=== PATIENT | female | born 1985 | race Caucasian/White ===

== ENCOUNTER → 2020-11-13 | Outpatient (CLI) | payer MEDICAID ==
[~2020-11-13] MED LIST: DCS100C PO; FRS325T PO; IBP600T1 PO; OXYC-12 PO; PREN1TAB14 PO; PREN1TAB25 PO
--- NOTE | 2020-11-13 11:43 | Diagnostic Imaging Report ---
INDICATION: assessment during normal . TECHNIQUE: Multiple real-time grayscale images were obtained over the gravid uterus. COMPARISON: None FINDINGS: A single live intrauterine is currently in cephalic presentation. Placenta is anterior in left aspect without previa. Cervical length is 5.2 cm. Normal amount of amniotic fluid, index of 17.8 cm. Visualized anatomical structures including the kidneys, bladder, stomach, intracranial structures, four-chamber heart, three-vessel cord and cord insertion site as well as spine are unremarkable. Nonvisualized maternal ovaries. Biometrical measurements are as follows: Biparietal 4.84 cm, age 20 weeks 5 days. Head circumference 17.77 cm, age 20 weeks 2 days. Abdominal circumference 14.92 cm, age 20 weeks 2 days. Femur length 3.27 cm, age 20 weeks 2 days. Sonographic estimate age: 20 weeks 3 days. Sonographic estimated date of delivery: 03/30/2021. Estimated Weight: 339 gm (+/- 50 gm). LMP percentile: 41%. heart rate: 139 beats per minute. number: 1 of 1. IMPRESSION: 1. Single live intrauterine currently in a cephalic presentation. Sonographic estimated age 20 weeks 3 days for an estimated date of delivery March 30, 2021. No abnormalities demonstrated at this time. Dictated by: Dictated on workstation # [id number]
== END ==
LOC: RAD 09:33
PROVIDERS: ATTEND Obstetrics & Gynecology
DX: Z34.02 Encounter for supervision of normal first pregnancy, second trimester (principal); Z3A.20 20 weeks gestation of pregnancy
CPT/HCPCS: 76805

== ENCOUNTER 2021-03-21 05:41 | Outpatient (CLI) | payer MEDICAID ==
[~2021-03-21] VITALS: Ht 160 cm; Wt 69.3 kg
[2021-03-21] MEDS ORDERED: PREN-8 PO (12:10)
[2021-03-21] MEDS ORDERED: FERR-74 PO (12:10)
== END 2021-03-21 12:55 | disposition home or self-care (01) ==
LOC: PREOP 05:41
PROVIDERS: ATTEND Obstetrics & Gynecology
DX: Z01.818 Encounter for other preprocedural examination (principal)

== ENCOUNTER 2021-03-29 00:32 | Inpatient (IN) | payer MEDICAID ==
[~2021-03-29] VITALS: Ht 157.5 cm; Wt 68.4 kg
[2021-03-29] VITALS (9 sets, daily range): BP systolic 92–114; BP diastolic 57–77
[~2021-03-29 00:32] MED LIST changes: +FERR-74 PO; +PREN-8 PO
[2021-03-29] MEDS ORDERED: OXYTOCIN PRE-MIX DRIP 1,000 ML IV ONE (11:39)
[2021-03-29] MEDS ORDERED: fentaNYL INJ 100 MCG/2 ML AMP ONE (11:39)
[2021-03-29] MEDS ORDERED: ROPIVACAINE 5MG/ML 30ML VIAL ONE (11:39)
[2021-03-29] MEDS ORDERED: ceFAZolin INJECTION 1,000 MG in WATER (STERILE) FOR INJECTION 10 ML IV ONE (11:45)
[2021-03-29] MEDS ORDERED: CITRIC ACID/SOB CIT (BICITRA) 30 ML UDC ONE (11:46)
[2021-03-29] MEDS ORDERED: FAMOTIDINE 20MG/2ML IV (PEPCID) ONE (11:46)
[2021-03-29] MEDS ORDERED: METOCLOPRAMIDE INJ 10 MG/2 ML (REGLAN) ONE (11:46)
[2021-03-29 11:49] LABS: BASOPHILS % (AUTO) 0 % (0-10); EOSINOPHILS # (AUTO) 0.1 10^3/uL (0.0-0.3); EOSINOPHILS % (AUTO) 1 % (0-10); HEMATOCRIT 37 % (35-52); HEMOGLOBIN 12.7 g/dL (11.5-16.0); LYMPHOCYTES # (AUTO) 1.7 10^3/uL (1.0-4.0); LYMPHOCYTES % (AUTO) 18 % (12-44); MEAN CORPUSCULAR HEMOGLOBIN 33 pg (25-34); MEAN CORPUSCULAR HGB CONC 35 g/dL (32-36); MEAN CORPUSCULAR VOLUME 95 fL (80-99); MEAN PLATELET VOLUME 11.8 fL (9.0-12.2); MONOCYTES # (AUTO) 0.4 10^3/uL (0.0-1.0); MONOCYTES % (AUTO) 5 % (0-12); NEUTROPHILS # (AUTO) 7.2 10^3/uL (1.8-7.8); NEUTROPHILS % (AUTO) 76 % (42-75); PLATELET COUNT 213 10^3/uL (130-400); WHITE BLOOD COUNT 9.5 10^3/uL (4.3-11.0)
[2021-03-29] MEDS ORDERED: ceFAZolin INJECTION 1,000 MG ONE (11:57)
[2021-03-29] MEDS ORDERED: WATER (STERILE) FOR INJECTION 10 ML ONE (11:59)
[2021-03-29] MEDS ORDERED: CITRIC ACID/SOB CIT (BICITRA) 30 ML UDC PO ONE (12:00)
[2021-03-29] MEDS ORDERED: LACTATED RINGERS 1,000 ML IV PRN (12:00)
[2021-03-29] MEDS ORDERED: METOCLOPRAMIDE INJ 10 MG/2 ML (REGLAN) IV ONE (12:00)
[2021-03-29] MEDS ORDERED: CATHETER FLUSH 10 ML SYR IV PRN (12:00)
[2021-03-29] MEDS ORDERED: FAMOTIDINE 20MG/2ML IV (PEPCID) IV ONE (12:00)
--- NOTE | 2021-03-29 12:03 | History & Physical-OB ---
OB - Chief Complaint & HPI Date/Time Date of Admission: Date of Admission: Mar 29, 2021 at 10:53 Date seen by a Provider: Mar 29, 2021 Time Seen by a Provider: 12:00 Chief Complaint/History OB-Reason for Admission/Chief: Section Hx : 4 Hx Para: 3 Expected Date of Delivery: Mar 31, 2021 Gestational Age in Weeks: 39 Gestational Age in Days: 5 Indication for : desires repeat Admission Nurse Assessment Rev: Yes Allergies and Home Medications Allergies Coded Allergies: No Known Drug Allergies (Unverified , 09/08/12) Home Medications Ferrous Sulfate 325 Mg Tablet, 325 MG PO TID, (Reported) Vit W-Ca,Fe,FA(<1 mg) 1 Each Tablet, 1 EACH PO DAILY, (Reported) Patient Home Medication List Home Medication List Reviewed: Yes OB - History Hx of Present Care: Yes Ultrasounds: Normal mid trimester US Obstetrical Complications: None Medical Complications: None Obstetrical History Hx Termination: No Hx Multiple Gestation: No Hx Stillbirth: No Hx Complication: Yes (VAGINAL BLEEDING WITH FIRST ) Hx Induced Hypertens: No Hx Maternal Gestational Diabet: No Delivery History Hx Section: Yes Hx Blood Disorders: No Patient Past Medical History n/a Immunizations Date of Influenza Vaccine: Sep 01, 2012 OB - Admission Exam Physical Exam HEENT: NCAT Heart: Rhythm Normal Lungs: Clear Abdomen: Gravid Extremities: Normal Reflexes: Normal Heart Rate: 130's Accelerations: Accelerations Present Decelerations: No Decelerations Short Term Variability: Present Subassembly Supervisor Variability: Average (6-25) Contractions on Admission: >10 Minutes Apart Intensity: Mild Labs Laboratory Tests Test 03/29/21 11:18 Range/Units White Blood Count 9.5 4.3-11.0 10^3/uL Red Blood Count 3.85 3.80-5.11 10^6/uL Hemoglobin 12.7 11.5-16.0 g/dL Hematocrit 37 35-52 % Mean Corpuscular Volume 95 80-99 fL Mean Corpuscular Hemoglobin 33 25-34 pg Mean Corpuscular Hemoglobin Concent 35 32-36 g/dL Red Cell Distribution Width 13.6 10.0-14.5 % Platelet Count 213 130-400 10^3/uL Mean Platelet Volume 11.8 9.0-12.2 fL Immature Granulocyte % (Auto) 1 % Neutrophils (%) (Auto) 76 H 42-75 % Lymphocytes (%) (Auto) 18 12-44 % Monocytes (%) (Auto) 5 0-12 % Eosinophils (%) (Auto) 1 0-10 % Basophils (%) (Auto) 0 0-10 % Neutrophils # (Auto) 7.2 1.8-7.8 10^3/uL Lymphocytes # (Auto) 1.7 1.0-4.0 10^3/uL Monocytes # (Auto) 0.4 0.0-1.0 10^3/uL Eosinophils # (Auto) 0.1 0.0-0.3 10^3/uL Basophils # (Auto) 0.0 0.0-0.1 10^3/uL Immature Granulocyte # (Auto) 0.1 0.0-0.1 10^3/uL OB - Assessment/Plan/Diagnosis Assessment Assessment: section Admission Dx 35 yo @ 39 weeks Previous Admission Status: Inpatient Order (span 2 midnights) Reason for Inpatient Admission: Repeat Plan Plan: Section JIMMIE DAO DO Mar 29, 2021 12:03
[2021-03-29] MEDS ORDERED: TETANUS,DIPTH,PERTUSS P/F (BOOSTRIX) 0.5 ML VIAL IM SCH (12:15)
[2021-03-29] MEDS ORDERED: HYDROcodone/APAP 5 MG/325 MG (LORTAB) TAB PO PRN (12:15)
[2021-03-29] MEDS ORDERED: HYDROmorphone 2 MG/ML VIAL (DILAUDID) IV NR (12:15)
[2021-03-29] MEDS ORDERED: MEASLES,MUMPS,RUBELLA 1 EA INJ SC SCH (12:15)
[2021-03-29] MEDS ORDERED: ONDANSETRON 4 MG/2 ML (SDV) Z0FRAN IVP PRN ×2 (12:15)
[2021-03-29] MEDS ORDERED: KETOROLAC 30 MG/ML VIAL ONE (12:46)
[2021-03-29] MEDS ORDERED: PNV11TAB5 PO (12:50)
[2021-03-29] MEDS ORDERED: PHENYLEPHRINE 100 MCG/ML 10 ML (ANESTHESIA) SYR ONE (12:56)
[2021-03-29] MEDS: KETOROLAC 30 MG/ML VIAL IV SCH ×2 (13:00→20:45)
[2021-03-29] MEDS: OXYTOCIN PRE-MIX DRIP 500 ML IV SCH ×2 (13:40→17:54)
[2021-03-29] MEDS: CATHETER FLUSH 10 ML SYR IV SCH (15:10)
[2021-03-29] MEDS: DOCUSATE SODIUM 100 MG (COLACE) CAP PO SCH (20:45)
--- NOTE | 2021-03-29 21:49 | OPERATIVE REPORT ---
DATE OF SERVICE: PREOPERATIVE DIAGNOSES: 1. A 35-year-old G4, P3 at 39 weeks gestation. 2. Previous section x3. POSTOPERATIVE DIAGNOSES: 1. A 35-year-old G4, P3 at 39 weeks gestation. 2. Previous section x3. PROCEDURE PERFORMED: Repeat low transverse section. SURGEON: Calin Dao DO. ANESTHESIA: Spinal. ESTIMATED BLOOD LOSS: 600 mL. URINE OUTPUT: 50 mL clear at the end of the procedure. FLUIDS: A 1200 mL lactated Ringer's solution. FINDINGS: A live female weighing 6 pounds and 10 ounces, Apgars of 8 and 9. Grossly normal appearing uterus, bilateral fallopian tubes and ovaries. SPECIMEN SENT: None. INDICATIONS FOR PROCEDURE: This is a 35-year-old female patient who had sought care in my office, it was uncomplicated with the exception of planned repeat at 39 weeks. Risks of procedure have been discussed with the patient throughout her care including risk of bleeding, infection, damage to surrounding structures including, but not limited to bowel, bladder, or kidneys, possible need for operation, postoperative complications that may occur, risk from anesthesia and even . After everything had been discussed with the patient in the preoperative area, once again her consent was obtained in the preoperative area and the patient was taken to the operating room. OPERATIVE REPORT IN DETAIL: Once in the operating room, spinal analgesia was found to be adequate, she was placed in the supine position with leftward tilt and prepped and draped in normal sterile fashion. Timeout was performed and anesthesia was tested. I then proceeded to making a Pfannenstiel skin incision to the previously existing scar using knife and carried down to the underlying fascia using Bovie cautery. The fascial incision extended laterally using Bovie cautery. Superior aspect of the fascial incision was then grasped with Judy clamps, tented up and dissected off the underlying rectus muscles. The inferior aspect of fascial incision was then grasped with Judy clamps, tented up and dissected off the underlying rectus muscles. Rectus muscles were then dissected down the midline, which exposed the peritoneum, which I entered bluntly and extended using blunt traction. Vidal ring retractor was placed in the peritoneal incision, which offers excellent lateral sidewall retraction. I then identified the lower uterine segment, which was found to be thinned out. I made a low transverse incision to the vesicouterine peritoneum and bluntly dissected off the lower uterine segment, creating a bladder flap. I then proceeded with my myotomy until membranes were visualized, at which point, I extended the uterine incision laterally and superiorly using bandage scissors. Amniotomy was then performed. Clear fluid was noted. was found in vertex presentation. With gentle fundal pressure, the 's head was delivered through the incision, where nuchal cord was reduced x1. Anterior and posterior shoulders were delivered. The infant was then brought to the operative field with cord doubly clamped and cut and was handed off to waiting nurses in attendance. Cord blood was then collected, 3-vessel cord with intact placenta was delivered spontaneously thereafter. IV Pitocin was initiated to facilitate uterine contraction. Uterine fundus became firmer with bimanual massage. The uterus was then exteriorized and cleared of all endometrial clots and debris. I then proceeded with closing the uterine incision using 0 Vicryl suture in a running locked fashion. Second layer of imbricating 0 Monocryl was placed. Excellent hemostasis was noted after doing this. I then placed the uterus back in the pelvis and copiously irrigated the pelvis using normal saline. Once again, there was no active bleeding noted from any of my dissection planes. I placed Interceed antiadhesive over my low transverse incision. I removed the Vidal ring retractor and then proceeded with closing the peritoneum using 3-0 Vicryl suture in a running fashion. The rectus muscle was reapproximated using 3-0 Vicryl suture in an interrupted fashion. The fascia was reapproximated using 0 Vicryl suture in running fashion. Subcutaneous tissue was reapproximated using 4-0 and the subcutaneous tissue is thin; therefore, the skin was reapproximated using 4-0 Monocryl in a running subcuticular. Dermabond was applied to the incision and sterile dressing with adhesive white tape. The patient tolerated the procedure well and was taken to the recovery area in stable condition. Lap and sponge count was correct at the end of the procedure. Instrument counts were correct as well. Two grams of Ancef were given preoperatively for infection prophylaxis. Job ID: [id number] DocumentID: [id number] Dictated Date: 03/29/2021 12:59:34 Program Proposals Coordinator Date: 03/29/2021 21:47:53 Dictated By: CALIN DAO DO
[2021-03-30 00:05] VITALS: BP 94/51
[2021-03-30 04:23] VITALS: BP 85/56
[2021-03-30] MEDS: KETOROLAC 30 MG/ML VIAL IV SCH ×2 (04:23→23:22)
[2021-03-30] MEDS: CATHETER FLUSH 10 ML SYR IV SCH (04:23)
[2021-03-30 06:06] LABS: BASOPHILS % (AUTO) 0 % (0-10); EOSINOPHILS # (AUTO) 0.1 10^3/uL (0.0-0.3); EOSINOPHILS % (AUTO) 1 % (0-10); HEMATOCRIT 30 % (35-52); HEMOGLOBIN 10.1 g/dL (11.5-16.0); LYMPHOCYTES # (AUTO) 1.1 10^3/uL (1.0-4.0); LYMPHOCYTES % (AUTO) 8 % (12-44); MEAN CORPUSCULAR HEMOGLOBIN 33 pg (25-34); MEAN CORPUSCULAR HGB CONC 34 g/dL (32-36); MEAN CORPUSCULAR VOLUME 97 fL (80-99); MEAN PLATELET VOLUME 11.7 fL (9.0-12.2); MONOCYTES # (AUTO) 0.4 10^3/uL (0.0-1.0); MONOCYTES % (AUTO) 3 % (0-12); NEUTROPHILS # (AUTO) 12.1 10^3/uL (1.8-7.8); NEUTROPHILS % (AUTO) 88 % (42-75); PLATELET COUNT 161 10^3/uL (130-400); WHITE BLOOD COUNT 13.8 10^3/uL (4.3-11.0)
--- NOTE | 2021-03-30 08:28 | Postpartum Progress Note ---
Note Note Day # 1 Subjective: Patient is without complaints. Ambulating, voiding. Tolerating a regular diet without nausea or vomiting. Normal lochia. Pain is well controlled with oral pain medications. Objective: Physical Exam: General - Alert and oriented, no apparent distress Abdomen - Soft, appropriately tender to palpation, non-distended, fundus firm at umbilicus Extremities - no edema, negative Anne Marie's bilaterally Incision- c/d/i Assessment: POD 1 RLTCS Acute blood loss anemia Plan: Routine care. Encourage breast feeding. Encourage ambulation. Ferrous sulfate supplementation. Plan for discharge tomorrow Vitals - Labs Vital Signs - I&O Vital Signs Date Time Temp Pulse Resp B/P (MAP) Pulse Ox O2 Delivery O2 Flow Rate FiO2 03/30/21 04:23 36.3 56 18 85/56 (66) 97 Room Air 03/30/21 00:05 36.4 72 18 94/51 (65) 98 Room Air 03/29/21 20:45 36.8 61 18 111/61 (78) 98 Room Air 03/29/21 16:00 36.8 52 18 105/59 (74) 100 Room Air 03/29/21 14:12 Room Air 03/29/21 14:12 36.1 16 102/77 (85) 98 Room Air 03/29/21 13:58 36.3 16 98/57 (71) 98 Room Air 03/29/21 13:58 Room Air 03/29/21 13:43 36.0 16 108/69 (82) 98 Room Air 03/29/21 13:43 Room Air 03/29/21 13:27 35.9 16 101/65 (77) 97 Room Air 03/29/21 13:27 Room Air 03/29/21 13:12 36.0 16 92/58 (69) 96 Room Air 03/29/21 13:12 Room Air 03/29/21 11:54 66 16 107/74 (85) 99 Room Air 03/29/21 11:11 36.4 76 18 97 Room Air I & O 03/30/21 07:00 Intake Total 3010 ml Output Total 125 ml Balance 2885 ml Labs Laboratory Tests 03/29/21 11:18: White Blood Count 9.5, Red Blood Count 3.85, Hemoglobin 12.7, Hematocrit 37, Mean Corpuscular Volume 95, Mean Corpuscular Hemoglobin 33, Mean Corpuscular Hemoglobin Concent 35, Red Cell Distribution Width 13.6, Platelet Count 213, Mean Platelet Volume 11.8, Immature Granulocyte % (Auto) 1, Neutrophils (%) (Auto) 76H, Lymphocytes (%) (Auto) 18, Monocytes (%) (Auto) 5, Eosinophils (%) (Auto) 1, Basophils (%) (Auto) 0, Neutrophils # (Auto) 7.2, Lymphocytes # (Auto) 1.7, Monocytes # (Auto) 0.4, Eosinophils # (Auto) 0.1, Basophils # (Auto) 0.0, Immature Granulocyte # (Auto) 0.1 03/30/21 05:45: White Blood Count 13.8H, Red Blood Count 3.08L, Hemoglobin 10.1#L, Hematocrit 3 0L, Mean Corpuscular Volume 97, Mean Corpuscular Hemoglobin 33, Mean Corpuscular Hemoglobin Concent 34, Red Cell Distribution Width 13.7, Platelet Count 161, Mean Platelet Volume 11.7, Immature Granulocyte % (Auto) 0, Neutrophils (%) ( Auto) 88H, Lymphocytes (%) (Auto) 8L, Monocytes (%) (Auto) 3, Eosinophils (%) (Auto) 1, Basophils (%) (Auto) 0, Neutrophils # (Auto) 12.1H, Lymphocytes # (Auto) 1.1, Monocytes # (Auto) 0.4, Eosinophils # (Auto) 0.1, Basophils # (Auto) 0.0, Immature Granulocyte # (Auto) 0.1 JIMMIE DAO DO Mar 30, 2021 08:28
--- NOTE | 2021-03-30 09:23 | Anesthesia-Regional Post-Op ---
Regional Patient Condition Mental Status: Alert, Oriented x3 Circulation: Same as Pre-Op Headache: Absent Sensation: Full Recovery Motor Block: Absent Post Op Complications Complications None Follow Up Care/Instructions Patient Instructions None needed. Anesthesia/Patient Condition Patient is doing well, no complaints, stable vital signs, no apparent adverse anesthesia problems. No complications reported per nursing. CARLOS SCHMIDT CRNA Mar 30, 2021 09:23
[2021-03-30 10:01] VITALS: BP 112/87
[2021-03-30] MEDS: DOCUSATE SODIUM 100 MG (COLACE) CAP PO SCH ×2 (10:19→21:37)
[2021-03-30] MEDS: IBUPROFEN 600 MG (MOTRIN) TAB PO SCH ×3 (12:15→23:25)
[2021-03-30 16:23] VITALS: BP 110/64
[2021-03-30] MEDS ORDERED: SIMETHICONE 80 MG (MYLICON) CHEW ONE (21:42)
[2021-03-30] MEDS ORDERED: SIMETHICONE 80 MG (MYLICON) CHEW PO PRN (21:45)
[2021-03-30 23:25] VITALS: BP 102/54
[2021-03-31 06:42] VITALS: BP 105/68
[2021-03-31] MEDS: IBUPROFEN 600 MG (MOTRIN) TAB PO SCH (06:42)
[2021-03-31] MEDS: DOCUSATE SODIUM 100 MG (COLACE) CAP PO SCH (08:24)
[2021-03-31 08:28] VITALS: BP 123/79
--- NOTE | 2021-03-31 08:50 | Postpartum Progress Note ---
Note Note Day # 2 Subjective: Patient is without complaints. Ambulating, voiding. Tolerating a regular diet without nausea or vomiting. Normal lochia. Pain is well controlled with oral pain medications. Objective: Physical Exam: General - Alert and oriented, no apparent distress Abdomen - Soft, appropriately tender to palpation, non-distended, fundus firm at umbilicus Extremities - no edema, negative Anne Marie's bilaterally Incision -c/d/i Assessment: POD 2 RLTCS Acute blood loss anemia Plan: Routine care. Encourage breast feeding. Encourage ambulation. Ferrous sulfate supplementation. Plan for discharge today Vitals - Labs Vital Signs - I&O Vital Signs Date Time Temp Pulse Resp B/P (MAP) Pulse Ox O2 Delivery O2 Flow Rate FiO2 03/31/21 06:42 36.4 69 18 105/68 (80) 98 Room Air 03/30/21 23:25 36.6 60 18 102/54 (70) 98 Room Air 03/30/21 16:23 36.9 72 18 110/64 (79) 98 Room Air 03/30/21 10:01 36.5 64 18 112/87 (95) 97 Room Air JIMMIE DAO DO Mar 31, 2021 08:50
[2021-03-31] MEDS ORDERED: DCS100C PO (08:51)
[2021-03-31] MEDS ORDERED: IBUP-844 PO (08:51)
[2021-03-31] MEDS ORDERED: ACHD5005 PO (08:51)
--- NOTE | 2021-03-31 08:52 | Discharge Inst-Women's Service ---
Discharge Inst-Women's Serv Depart Medication/Instructions New, Converted or Re-Newed RX: RX on Chart Final Diagnosis POD 2 RLTCS Problems Reviewed?: Yes Consults/Follow Up Additional Follow Up: Yes Orders/Referrals Dr. Webb in 7-10 days and in 6 weeks Activity Activity: Activity as Tolerated Driving Instructions: No Driving for 1 Week NO SMOKING: NO SMOKING Nothing Inside Vagina: No Douching, No [place], No Tampons Diet Discharge Diet: No Restrictions Symptoms to Report to : Bleeding Excessive, Pain Increased, Fever Over 101 Degrees F, Vaginal Bleeding Increase, Questions/Concerns For Any Problems or Questions: Contact Your Physician Skin/Wound Care Infection Signs and Symptoms: Increased Redness, Foul Odor of Wound, Increased Drainage, Skin Itchy or Has a Rash, Increased Swelling, Temperature Above 101 F Operative Area Clean and Dry: Keep Incision Clean/Dry Stitches/Linda/Dermabond: Dermabond, Care of Stitches Bathing Instructions: JIMMIE Julian DO Mar 31, 2021 08:52
== END 2021-03-31 11:41 | disposition home or self-care (01) | DRG 787 ==
LOC: LDRP 10:53 → WS 13:34
PROVIDERS: ADMIT Obstetrics & Gynecology; ATTEND Obstetrics & Gynecology
PROC: 10D00Z1 Extraction of Products of Conception, Low, Open Approach (ICD-10-PCS; principal; 2021-03-29 12:15)
DX: O34.211 Maternal care for low transverse scar from previous cesarean delivery (principal); D62 Acute posthemorrhagic anemia; Z3A.39 39 weeks gestation of pregnancy; Z37.0 Single live birth; O90.81 Anemia of the puerperium
CPT/HCPCS: 36415; 85025; 86850; 86900; 86901; 94664